=== PATIENT | female | born 1965 | race Caucasian/White ===

== ENCOUNTER 2019-09-12 19:34 | Emergency (ER) | payer MEDICAID ==
[~2019-09-12] VITALS: Ht 162.6 cm; Wt 53.1 kg
[2019-09-12 19:42] VITALS: BP 129/84
--- NOTE | 2019-09-12 19:45 | NUR ---
TO LOBBY A/W BED AMBULATORY
--- NOTE | 2019-09-12 20:30 | NUR ---
C/O RT-SIDED ABD PAIN X 2 DAYS. STATES NONBLOODY DIARRHEA, NAUSEA, ABD BLOATING. LBM TODAY. DENIES FEVER, VOMITING, UTI SYMPTOMS. PAIN 10/10 SHARP. HX- CVA, BIPOLAR, PSYCHOSIS
--- NOTE | 2019-09-12 20:46 | NUR ---
Dr. Saldivar examining patient.
[2019-09-12] MEDS ORDERED: MORPHINE SULFATE 4 MG/ML SYR IVP ONE (20:55)
[2019-09-12] MEDS ORDERED: ONDANSETRON 4 MG/2 ML VIAL IVP ONE (20:55)
--- NOTE | 2019-09-12 21:10 | NUR ---
REPORT TO JOSE BOB. TRANSFER OF CARE AT THIS TIME.
--- NOTE | 2019-09-12 21:11 | NUR ---
RECEIVED REPORT FROM LISBETH FLYNN. TRANSFER OF CARE AT THIS TIME
--- NOTE | 2019-09-12 21:34 | NUR ---
Fuentes elias in [facility] - 09/12/19 at 2134 by JUDI PT TAKEN TO BED 1
--- NOTE | 2019-09-12 21:34 | NUR ---
PT TAKEN TO CT
[2019-09-12 21:36] LABS: BASOPHILS % (AUTO) 0.4 % (0.0-2.0); EOSINOPHILS # (AUTO) 0.2 K/uL (0-0.4); EOSINOPHILS % (AUTO) 2.3 % (0.0-4.0); HEMATOCRIT 38.2 % (36-48); HEMOGLOBIN 12.4 g/dL (12.0-16.0); LYMPHOCYTES # (AUTO) 2.3 K/uL (2.5-16.5); LYMPHOCYTES % (AUTO) 21.2 % (20.5-51.1); MEAN CORPUSCULAR HEMOGLOBIN 27 pg (27-31); MEAN CORPUSCULAR HGB CONC 32 g/dL (33-37); MEAN CORPUSCULAR VOLUME 84.6 fL (80-94); MONOCYTES % (AUTO) 8.9 % (1.7-9.3); NEUTROPHILS # (AUTO) 7.2 K/uL (1.8-7.7); NEUTROPHILS % (AUTO) 67.2 % (42.2-75.2); PLATELET COUNT (AUTO) 236 K/uL (140-450); RED BLOOD CELL COUNT(AUTO) 4.51 MIL/uL (4.20-5.40); RED CELL DISTRIBUTION WIDTH 14.6 % (11.6-13.7); WHITE BLOOD COUNT (AUTO) 10.8 K/uL (4.8-10.8)
[2019-09-12 21:45] LABS: APPEARANCE,URINE CLEAR (CLEAR); BILIRUBIN,URINE NEGATIVE (NEGATIVE); BLOOD, URINE NEGATIVE (NEGATIVE); COLOR,URINE YELLOW (YELLOW); LEUKOCYTE ESTERASE ,URINE NEGATIVE (NEGATIVE); NITRITE, URINE NEGATIVE (NEGATIVE); PH,URINE 6.5 (5.0-9.0); UGLUCOSE NEGATIVE (NEGATIVE)
--- NOTE | 2019-09-12 21:45 | NUR ---
PT RETURN FROM CT
[2019-09-12 21:47] LABS: ANION GAP 10.6 (8-16); CARBON DIOXIDE 26.3 mmol/L (21-32); CREATININE 0.7 mg/dL (0.6-1.3); POTASSIUM 3.9 mmol/L (3.5-5.1)
--- NOTE | 2019-09-12 21:52 | NUR ---
PT STATES 5/10 TOLERABLE PAIN AT THIS TIME
[2019-09-12 21:53] LABS: ALBUMIN 3.8 g/dL (3.4-5.0); TOTAL BILIRUBIN 0.3 mg/dL (0.0-1.0)
--- NOTE | 2019-09-12 22:07 | NUR ---
PT RESTING IN BED WITH EYES CLOSED, VISIBLE RISE AND FALL OF THE CHEST. RR EVEN AND UNLABORED .PT AROUSABLE TO NAME. BED LOCKED AND IN LOW POSITION. VSS. WILL CONTINUE TO MONITOR
--- NOTE | 2019-09-12 23:46 | NUR ---
SITTING IN BED ON CELLPHONE, NO C/O OF PAIN AT THIS TIME. RR EVEN AND UNLABORED. BED LOCKED AND IN LOW POSITION, X 1 SIDE RAIL RAISED. VSS. WILL CONTINUE TO MONTIOR
[2019-09-13 00:40] VITALS: BP 120/82
--- NOTE | 2019-09-13 00:43 | NUR ---
Patient discharged with v/s stable. Written and verbal after care instructions given and explained. Patient alert, oriented and verbalized understanding of instructions. Ambulatory with steady gait. All questions addressed prior to discharge. ID band removed. Patient advised to follow up with PMD. Rx of zofran, motrin given. Patient educated on indication of medication including possible reaction and side effects. Opportunity to ask questions provided and answered.
== END 2019-09-13 00:43 | disposition home or self-care (01) ==
LOC: MED 19:34
DX: R10.84 Generalized abdominal pain (principal); R11.0 Nausea; F17.210 Nicotine dependence, cigarettes, uncomplicated; Z86.73 Personal history of transient ischemic attack (TIA), and cerebral infarction without residual deficits; Z90.49 Acquired absence of other specified parts of digestive tract; Z98.890 Other specified postprocedural states; Z88.0 Allergy status to penicillin
CPT/HCPCS: 36415; 74176; 80053; 81003; 81025; 82140; 83690; 85025; 96374; 96375; 99284; J2270; J2405